=== PATIENT | male | born 1995 | race Caucasian/White ===

== ENCOUNTER 2017-04-27 00:08 | Emergency (ER) | payer OTHER ==
[2017-04-27 00:15] VITALS: TEMP 97.5
[2017-04-27] MEDS ORDERED: LET GEL TOPICAL 1 EA SYR TP ONE (00:46)
[2017-04-27] MEDS ORDERED: SKIN ADHESIVE (DERMABOND) 1 EACH TP ONE (01:22)
--- NOTE | 2017-04-27 02:09 | EDPHY ---
H & P Stated Complaint: fell into cabinet and hit his head, lac noted, no LOC Time Seen by Provider: 04/27/17 01:47 HPI/ROS: HPI The patient presents with a fall which occurred just prior to arrival. He was standing on his bed and fell backwards onto the corner of a bedside table sustaining a laceration to his scalp. He does not have any headache, nausea, vomiting, dizziness, weakness of his arms or legs, vision changes. He has been drinking alcohol tonight REVIEW OF SYSTEMS Constitutional: No fever, no chills. Musculoskeletal: No back pain. Skin: No rashes. Neurological: No headache. PMHx: Healthy Soc Hx: Alcohol use PHYSICAL General Appearance: Alert, no distress Eyes: Pupils equal and round no pallor or injection ENT, Mouth: Mucous membranes moist Head: Scalp with v-shaped laceration of the posterior occiput approximately 1 cm not involving the g[place] Respiratory: There are no retractions, lungs are clear to auscultation Cardiovascular: Regular rate and rhythm Gastrointestinal: Abdomen is soft and non-tender, no masses, bowel sounds normal Neurological: A&O, moves all extremities Skin: Warm and dry, no rashes Musculoskeletal: Neck is supple non tender Extremities: symmetrical, full range of motion Psychiatric: Patient is oriented X 3, there is no agitation Source: Patient - Personal History Current Tetanus Diphtheria and Acellular Pertussis (TDAP): Yes - Medical/Surgical History Hx Asthma: No Hx Chronic Respiratory Disease: No Hx Diabetes: No Hx Cardiac Disease: No Hx Renal Disease: No Hx Cirrhosis: No Hx Alcoholism: No Hx HIV/AIDS: No Hx Splenectomy or Spleen Trauma: No Other PMH: clavical surgery - Social History Smoking Status: Never smoked Constitutional: Initial Vital Signs Temperature (C) 36.4 C 04/27/17 00:13 Heart Rate 57 L 04/27/17 00:13 Respiratory Rate 18 04/27/17 00:13 Blood Pressure 101/58 L 04/27/17 00:13 O2 Sat (%) 98 04/27/17 00:13 O2 Delivery Mode Room Air Allergies/Adverse Reactions: No Known Allergies Allergy (Unverified 04/27/17 00:13) Home Medications: Medication Instructions Recorded NK [No Known Home Meds] 04/27/17 Medical Decision Making Procedures: LACERATION REPAIR Procedure: Laceration repair. Verbal consent was obtained from the patient. The v-shaped 1 cm laceration on the posterior occiput. The wound was scrubbed, draped and explored to its base with a gloved finger. There were no deep structures involved. . The wound was repaired with Dermabond. The wound repair was simple. The procedure was performed by myself. Differential Diagnosis: This is a 22-year-old healthy male who presents after a fall, hitting his head on the corner of a bedside table. He did not lose consciousness, nor does he have a headache, vomiting, any other concerning features for intracranial hemorrhage. By nexus 2 criteria, he does not require CT scan of his head. In the emergency room, scalp laceration was repaired with Dermabond without difficulty. He was given instructions for wound care. He will be discharged. Differential diagnosis includes scalp laceration, alcohol intoxication, intracranial hemorrhage. - Data Points Medications Given: Discontinued Medications Tetracaine/Epinephrine/Lidocaine (Let Gel Topical) 1 ea TP EDNOW ONE Stop: 04/27/17 00:47 Last Admin: 04/27/17 00:52 Dose: 1 ea Departure - Departure Disposition: Home, Routine, Self-Care Clinical Impression: Fall Qualifiers: Encounter type: initial encounter Qualified Code(s): W19.XXXA - Unspecified fall, initial encounter Scalp laceration Qualifiers: Encounter type: initial encounter Qualified Code(s): S01.01XA - Laceration without foreign body of scalp, initial encounter Alcohol intoxication Qualifiers: Complication of substance-induced condition: uncomplicated Qualified Code(s): F10.920 - Alcohol use, unspecified with intoxication, uncomplicated Condition: Good Instructions: Head Injury (ED), Skin Adhesive Care (ED) Additional Instructions: Please return to the emergency room if your worse in any way. The glue will fall off in the next 3-5 days. You should not wash her hair for 2 days. Referrals: TERRY PIERSON [Other] - As per Instructions
[2017-04-27 02:20] VITALS: BP 123/64; PULSE 72; RESP 16; O2SAT 97
== END 2017-04-27 02:21 | disposition home or self-care (01) ==
PROC: 0HQ0XZZ Repair Scalp Skin, External Approach (ICD-10-PCS; principal; 2017-04-27)
DX: S01.01XA Laceration without foreign body of scalp, initial encounter (principal); W19.XXXA Unspecified fall, initial encounter